=== PATIENT | female | born 1975 | race Caucasian/White ===

== ENCOUNTER → 2019-06-18 | Day surgery (SDC) | payer BC ==
--- NOTE | 2019-06-19 17:45 | PATH ---
Surgical Pathology Report Patient Name: MARIA DEL ROSARIO [facility]. Rec. #: [id number] /Age/Gender: 1975 (Age: 44) / F Account: [id number] Location: RADIOLOGY [facility] Taken: 06/18/2019 Received: 06/18/2019 Reported: 06/19/2019 Physicians: Nica Freitas M.D. Specimen(s) Received RIGHT BREAST 4:30-5:00 Clinical History Nonpalpable lesion Ultrasound findings: Probably benign 0.9 cm Final Diagnosis BREAST, RIGHT, 4:30-5:00, ULTRASOUND GUIDED CORE BIOPSY: BENIGN BREAST PARENCHYMA WITH DENSE STROMAL FIBROSIS, FOCAL USUAL DUCTAL HYPERPLASIA, SCLEROSING ADENOSIS, AND ASSOCIATED MICROCALCIFICATIONS. Electronically Signed Jo Neil M.D. Gross Description Received in formalin labeled "right breast 4:30-5:00" are 4 gaona-yellow, cylindrical portions of fibroadipose tissue ranging from 0.6-1 cm in length and averaging 0.2 cm diameter. The specimens are submitted in toto in one cassette. Time to formalin fixation:<1 minute Total formalin fixation time: 9 hours. MLSZ/06/18/2019 judith/06/18/2019
== END | disposition home or self-care (01) ==
LOC: JRADUS-SUR 09:17
PROVIDERS: ATTEND Internal Medicine
PROC: 0HBT3ZX Excision of Right Breast, Percutaneous Approach, Diagnostic (ICD-10-PCS; principal; 2019-06-18)
DX: N60.31 Fibrosclerosis of right breast (principal); N60.81 Other benign mammary dysplasias of right breast; N60.21 Fibroadenosis of right breast; N64.89 Other specified disorders of breast; N63.41 Unspecified lump in right breast, subareolar
CPT/HCPCS: 19083; 87899; 88305-TC; A4648

== ENCOUNTER 2021-06-21 22:29 | Emergency (ER) | payer BC ==
[2021-06-21 22:38] VITALS: TEMP 99.4; BMI 32.4
[2021-06-21] MEDS ORDERED: ACETAMINOPHEN 325 MG TABLET (FP) PO ONE (23:43)
[2021-06-21] MEDS ORDERED: ACETAMINOPHEN 325 MG TABLET (FP) ONE (23:47)
[2021-06-22 01:34] LABS: BASO % 0.4 % (0-2.0); EOS % 1.5 % (0-4.5); HEMATOCRIT 38.3 % (32.4-45.2); HEMOGLOBIN 12.9 GM/dL (10.7-15.3); LYMPH % 23.5 % (8-40); MCH 29.1 pg (25.7-33.7); MCHC 33.7 g/dl (32.0-36.0); MEAN CELL VOLUME 86.2 fl (80-96); MEAN PLT VOLUME 6.2 fl (7.5-11.1); MONO % 6.3 % (3.8-10.2); NEUT % 68.3 % (42.8-82.8); PLATELET COUNT 288 10^3/uL (134-434); RBC 4.45 M/mm3 (3.60-5.2); RDW 12.8 % (11.6-15.6); WHITE BLOOD COUNT 11.8 K/mm3 (4.0-10.0)
[2021-06-22 01:49] LABS: CALCIUM 8.5 mg/dL (8.5-10.1)
[2021-06-22 01:50] LABS: ALBUMIN 3.7 g/dl (3.4-5.0); BLOOD UREA NITROGEN 16.5 mg/dL (7-18)
[2021-06-22 01:55] LABS: BILIRUBIN,TOTAL 0.7 mg/dL (0.2-1); TOT PROT 7.5 g/dl (6.4-8.2)
[2021-06-22 03:00] VITALS: BP 113/78; PULSE 85
== END 2021-06-22 03:38 | disposition home or self-care (01) ==
LOC: JER 22:29
DX: J06.9 Acute upper respiratory infection, unspecified (principal)
CPT/HCPCS: 36415; 80053; 84703; 85025; 87804; 99283-25; C9803; U0003; U0005

== ENCOUNTER 2021-07-18 14:47 | Emergency (ER) | payer BC ==
[2021-07-18 15:02] VITALS: TEMP 98; BMI 32.0
[2021-07-18] MEDS ORDERED: SODIUM CHLORIDE 0.9% 500 ML INFUS.BAG IV ONE (17:19)
[2021-07-18] MEDS ORDERED: ACETAMINOPHEN 1000 MG/100 ML VIAL IVPB ONE (17:23)
[2021-07-18 18:08] LABS: URINE APPEARANCE CLEAR; URINE BILIRUBIN NEGATIVE (NEGATIVE); URINE COLOR YELLOW; URINE GLUCOSE (UA) NEGATIVE (NEGATIVE); URINE KETONE NEGATIVE (NEGATIVE); URINE LEUK ESTERASE NEGATIVE (NEGATIVE); URINE NITRITE NEGATIVE (NEGATIVE); URINE PROTEIN NEGATIVE (NEGATIVE)
[2021-07-18 18:18] LABS: CALCIUM 9.1 mg/dL (8.5-10.1)
[2021-07-18] MEDS ORDERED: ACETAMINOPHEN INJECTION 100 ML IVPB ONE (18:18)
[2021-07-18 18:19] LABS: ALBUMIN 4.3 g/dl (3.4-5.0)
[2021-07-18 18:22] LABS: CREATININE 0.9 mg/dL (0.55-1.3)
[2021-07-18 18:24] LABS: BILIRUBIN,TOTAL 0.4 mg/dL (0.2-1); TOT PROT 8.1 g/dl (6.4-8.2)
[2021-07-18 18:30] LABS: BASO % 0.3 % (0-2.0); EOS % 1.2 % (0-4.5); HEMATOCRIT 39.7 % (32.4-45.2); HEMOGLOBIN 13.6 GM/dL (10.7-15.3); LYMPH % 38.7 % (8-40); MCH 29.6 pg (25.7-33.7); MCHC 34.3 g/dl (32.0-36.0); MEAN CELL VOLUME 86.2 fl (80-96); MEAN PLT VOLUME 6.7 fl (7.5-11.1); MONO % 4.1 % (3.8-10.2); NEUT % 55.7 % (42.8-82.8); PLATELET COUNT 324 10^3/uL (134-434); RDW 13.1 % (11.6-15.6)
[2021-07-18 19:37] VITALS: BP 163/104; PULSE 85
== END 2021-07-18 21:42 | disposition home or self-care (01) ==
LOC: JER 14:47
PROC: 3E033NZ Introduction of Analgesics, Hypnotics, Sedatives into Peripheral Vein, Percutaneous Approach (ICD-10-PCS; principal; 2021-07-18)
DX: K59.00 Constipation, unspecified (principal); R10.9 Unspecified abdominal pain
CPT/HCPCS: 36415; 74177-TC; 76705-TC; 76830-TC; 80053; 81003; 82272; 83690; 84703; 85025; 87086; 93005; 93010; 99284-25; J0131; Q9967

== ENCOUNTER → 2024-01-12 | Day surgery (SDC) | payer BC | END | disposition home or self-care (01) | LOC: FMAMMOTONE 08:54 | PROVIDERS: ATTEND Obstetrics & Gynecology | PROC: 0HBU3ZX Excision of Left Breast, Percutaneous Approach, Diagnostic (ICD-10-PCS; principal; 2024-01-12) | DX: N60.12 Diffuse cystic mastopathy of left breast (principal); N64.89 Other specified disorders of breast; R92.0 Mammographic microcalcification found on diagnostic imaging of breast | CPT/HCPCS: 19081; 19082; 76098-TC-FY; 88305-TC; A4648 ==